=== PATIENT | male | born 1985 | race Caucasian/White ===

== ENCOUNTER 2020-01-31 13:42 | Emergency (ER) | payer BC ==
[~2020-01-31] VITALS: Ht 165.1 cm; Wt 79.4 kg
[2020-01-31 13:42] VITALS: BP_SYST 163
[~2020-01-31 13:42] MED LIST: DIVA-74 PO
[2020-01-31] MEDS ORDERED: LORazepam 2 MG/ML VIAL IVP ONE (14:00)
[2020-01-31] MEDS ORDERED: NACL 0.9% 1,000 ML IV ONE (14:15)
[2020-01-31 14:45] LABS: CREATININE 1.02 mg/dL (0.55-1.30); POTASSIUM 3.9 mmol/L (3.5-5.1)
[2020-01-31 14:50] LABS: ALBUMIN 4.2 g/dL (3.4-4.8); TOTAL BILIRUBIN 0.3 mg/dL (0.0-1.0)
[2020-01-31 15:42] VITALS: BP_SYST 134
== END 2020-01-31 15:45 | disposition home or self-care (01) ==
LOC: SED 13:42
DX: R56.9 Unspecified convulsions (principal)
CPT/HCPCS: 36415; 80053; 80164; 82962; 96361; 96374; 99283; J7030